=== PATIENT | female | born 1955 | race African-American/Black ===

== ENCOUNTER 2016-05-15 15:12 | Emergency (ER) | payer OTHER ==
[~2016-05-15] VITALS: Ht 160 cm; Wt 83.9 kg
[~2016-05-15 15:12] MED LIST: AMITRIPTYLINE H25 M3 PO; AMLODIPINE BESY10 MG PO; AMOXICILLIN 50500 M1 PO; APAP/CODEINE ELI5 M1 OR; ATORVASTATIN CA40 MG PO; BUPROPION XL150 MG PO; DIOVAN; FLEXERIL PO; IBUPROFEN 600600 M1 PO; IBUPROFEN 800800 M1 PO; IBUPROFEN 800800 MG PO; METAXALONE800 MG PO; METFORMIN HCL500 MG PO; NOHOMEMEDICATIONS; NORCO 5-325 TA1 EACH PO; NORFLEX100 MG PO; PAXIL10 MG PO; PHENERGAN 25 MG25 M1 PO; PHENTERMINE H37.5 MG PO; PROVENTIL HFA6.7 G1 INH; SIMVASTATIN5 MG; TOPROL XL25 MG PO; TOPROL XL50 MG PO; VENTOLIN17 GM INH; VICODIN 5-5001 EACH PO; ZOCOR; ZOCOR 20 MG TAB20 M1 PO; ZOFRAN ODT4 MG PO; ZPAK PO; [UNRECOGNIZED DRUG - OTHER] PO
[2016-05-15] MEDS ORDERED: VITAMIN D 5050000 I1 PO (15:33)
[2016-05-15 15:54] LABS: URINE BILIRUBIN NEGATIVE (Negative); URINE BLOOD NEGATIVE (Negative); URINE COLOR YELLOW; URINE GLUCOSE-RANDOM* 2+ (Negative); URINE KETONES NEGATIVE (Negative); URINE LEUKOCYTES-REFLEX NEGATIVE (Negative); URINE PROTEIN (DIPSTICK) NEGATIVE (Negative)
[2016-05-15 15:55] LABS: ABSOLUTE NEUTROPHILS 4.2 thou/uL (1.4-8.2); BASOPHILS 0.6 % (0.0-2.0); HEMATOCRIT 34.4 % (37.0-47.0); HEMOGLOBIN 11.4 gm/dL (12.0-15.0); LYMPHOCYTES 29.4 % (24.0-44.0); MCH 27.2 pg (26.0-34.0); MCV 82.4 fL (80.0-100.0); MONOCYTES 7.4 % (1.0-8.0); PLATELET COUNT 250 thou/uL (150-400); POLYS 61.6 % (36.0-66.0); RBC 4.17 mil/uL (4.20-5.00); WBC 6.8 thou/uL (4.0-11.0)
[2016-05-15 15:57] LABS: MANUAL DIFF NO
[2016-05-15 16:03] LABS: CALCIUM 8.9 mg/dL (8.5-10.1); POTASSIUM 3.4 mmol/L (3.5-5.1)
[2016-05-15 16:07] LABS: ALBUMIN 3.6 g/dL (3.4-5.0); TOTAL BILIRUBIN 0.1 mg/dL (<0.1-1.0); TOTAL PROTEIN 7.7 g/dL (6.4-8.2)
[2016-05-15] MEDS ORDERED: NAPROSYN500 MG PO (17:03)
[2016-05-15] MEDS ORDERED: ONDANSETRON HCL4 M2 PO (17:03)
== END 2016-05-15 17:53 | disposition home or self-care (01) ==
LOC: ER 15:12
PROVIDERS: Emergency Medicine
DX: R10.32 Left lower quadrant pain (principal); E11.9 Type 2 diabetes mellitus without complications; I10 Essential (primary) hypertension; E78.5 Hyperlipidemia, unspecified; Z90.710 Acquired absence of both cervix and uterus; Z88.5 Allergy status to narcotic agent

== ENCOUNTER 2018-01-05 19:56 | Emergency (ER) | payer BC, OTHER ==
[~2018-01-05] VITALS: Ht 177.8 cm; Wt 79.8 kg
--- NOTE | ~2018-01-05 | EKG ---
[address] [place] [address] ELECTROCARDIOGRAM REPORT Name: JACOBTWAN Room #: [facility] Herbie#: [id number] Admission: 01/05/18 Attend Phys: Discharge: 01/05/18 Date of : 57 Report #: [id number] THIS REPORT FOR: //name// 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 : 1955 Requested By: Mehran Schnieder Order Number: [id number] MD: Epi Castorena Measurements Intervals [place] Rate: 85 P: 31 W[place]: 165 QRS: -4 QRSD: 156 T: -6 QT: 423 QTc: 503 Interpretive Statements Sinus rhythm Right bundle branch block Compared to ECG 06/18/2014 23:18:41 Right bundle-branch block now present Electronically Signed On 01-06-2018 9:38:50 GEOSPATIAL INTELLIGENCE ANALYST by Epi Castorena [email or web address] <ELECTRONICALLY SIGNED> By: Epi Castorena MD, [facility] 01/06/18 0938 [id number] 58 Epi Castorena MD, FACC /EPI
[~2018-01-05 19:56] MED LIST changes: +NAPROSYN500 MG PO; +ONDANSETRON HCL4 M2 PO; +VITAMIN D 5050000 I1 PO
[2018-01-05 20:54] LABS: ABSOLUTE NEUTROPHILS 4.8 thou/uL (1.4-8.2); BASOPHILS 0.8 % (0.0-2.0); HEMATOCRIT 38.1 % (37.0-47.0); LYMPHOCYTES 33.2 % (24.0-44.0); MCH 28.3 pg (26.0-34.0); MCHC 34.1 g/dL (28.0-37.0); MONOCYTES 4.1 % (1.0-8.0); POLYS 60.9 % (36.0-66.0); RBC 4.59 mil/uL (4.20-5.00); WBC 10.3 thou/uL (4.0-11.0)
[2018-01-05 21:00] LABS: ANION GAP 11 mmol/L (7-16); BUN 14 mg/dL (7-18); CALCIUM 9.3 mg/dL (8.5-10.1); CHLORIDE 99 mmol/L (98-107); CO2 27 mmol/L (21-32); CREATININE 1.1 mg/dL (0.6-1.0); GLUCOSE 378 mg/dL (74-106); POTASSIUM 3.8 mmol/L (3.5-5.1); SODIUM 137 mmol/L (136-145)
[2018-01-05 21:08] LABS: TROPONIN-I <0.06 ng/mL (<0.06)
[2018-01-05] MEDS ORDERED: METFORMIN HCL500 MG PO (21:43)
[2018-01-05] MEDS ORDERED: CRESTOR10 MG PO (21:44)
[2018-01-05] MEDS ORDERED: CELEXA10 MG PO (21:44)
[2018-01-05] MEDS ORDERED: COZAAR 25 MG TA25 M1 PO (21:45)
[2018-01-05] MEDS ORDERED: BYDUREON P2 MG/0.65 SUBQ (21:47)
[2018-01-05 21:57] LABS: PLATELET COUNT 216 thou/uL (150-400)
[2018-01-05 22:58] VITALS: BP 161/93
== END 2018-01-05 22:58 | disposition home or self-care (01) ==
LOC: ER 19:56
PROVIDERS: Emergency Medicine
DX: I10 Essential (primary) hypertension (principal); E11.9 Type 2 diabetes mellitus without complications; E78.5 Hyperlipidemia, unspecified; Z88.5 Allergy status to narcotic agent; Z90.10 Acquired absence of unspecified breast and nipple; Z90.710 Acquired absence of both cervix and uterus; Z98.890 Other specified postprocedural states

== ENCOUNTER 2018-11-10 17:07 | Emergency (ER) | payer BC, OTHER ==
[~2018-11-10] VITALS: Ht 160 cm; Wt 77.1 kg
[~2018-11-10 17:07] MED LIST changes: +BYDUREON P2 MG/0.65 SUBQ; +CELEXA10 MG PO; +COZAAR 25 MG TA25 M1 PO; +CRESTOR10 MG PO
[2018-11-10 17:36] LABS: ABSOLUTE NEUTROPHILS 3.3 thou/uL (1.4-8.2); BASOPHILS 0.7 % (0.0-2.0); EOSINOPHILS 1.4 % (0.0-3.0); HEMATOCRIT 37.1 % (37.0-47.0); HEMOGLOBIN 11.9 gm/dL (12.0-15.0); MCH 26.8 pg (26.0-34.0); MCHC 32.1 g/dL (28.0-37.0); MCV 83.5 fL (80.0-100.0); MONOCYTES 4.5 % (1.0-8.0); PLATELET COUNT 293 thou/uL (150-400); POLYS 55.4 % (36.0-66.0); RBC 4.44 mil/uL (4.20-5.00); RDW 13.9 % (10.5-14.5)
[2018-11-10 17:39] LABS: ANION GAP 14 mmol/L (7-16); BUN 13 mg/dL (7-18); CALCIUM 9.5 mg/dL (8.5-10.1); CHLORIDE 103 mmol/L (98-107); CO2 25 mmol/L (21-32); CREATININE 1.1 mg/dL (0.6-1.0); GLUCOSE 243 mg/dL (74-106); POTASSIUM 3.5 mmol/L (3.5-5.1); SODIUM 142 mmol/L (136-145)
[2018-11-10 17:49] LABS: SGOT 13 U/L (15-37); SGPT 20 U/L (30-65); TOTAL BILIRUBIN 0.2 mg/dL (<0.1-1.0); TOTAL PROTEIN 8.6 g/dL (6.4-8.2); TROPONIN-I <0.06 ng/mL (<0.06)
[2018-11-10] MEDS ORDERED: CYCLOBENZAPRINE5 MG PO (19:59)
[2018-11-10] MEDS ORDERED: NORCO 5-325 TA1 EAC1 PO (19:59)
[2018-11-10 20:35] VITALS: BP 187/93
--- NOTE | 2018-11-11 08:01 | EKG ---
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: : 1955 Requested By: Annel Mcelroy Order Number: [id number] MD: Vic Yadav Measurements Intervals [place] Rate: 83 P: 28 [place]: 172 QRS: -24 QRSD: 159 T: -4 QT: 451 QTc: 530 Interpretive Statements Sinus rhythm Right bundle branch block LVH by voltage Compared to ECG 01/05/2018 20:59:40 Left ventricular hypertrophy now present Electronically Signed On 11-11-2018 8:01:21 CDT by Vic Yadav [email or web address] ��������������������������������������������� <ELECTRONICALLY SIGNED> ���������������������������������������� By: Vic Yadav MD ��������������������������������������������� 11/11/18 0801 [id number] 175 Vic Yadav MD /SURESH
== END 2018-11-10 20:40 | disposition home or self-care (01) ==
LOC: ER 17:07
PROVIDERS: Physician Assistant
DX: M54.2 Cervicalgia (principal); M54.6 Pain in thoracic spine; M25.532 Pain in left wrist; R07.89 Other chest pain; R51 Headache; E11.9 Type 2 diabetes mellitus without complications; I10 Essential (primary) hypertension; E78.5 Hyperlipidemia, unspecified; Z90.710 Acquired absence of both cervix and uterus; Z98.890 Other specified postprocedural states; Z88.6 Allergy status to analgesic agent; V89.2XXA Person injured in unspecified motor-vehicle accident, traffic, initial encounter; Y93.89 Activity, other specified; Y92.488 Other paved roadways as the place of occurrence of the external cause; Y99.8 Other external cause status

== ENCOUNTER 2021-01-15 12:30 | Emergency (ER) | payer BC, OTHER ==
[~2021-01-15] VITALS: Ht 160 cm; Wt 73.9 kg
[~2021-01-15 12:30] MED LIST changes: +CYCLOBENZAPRINE5 MG PO; +NORCO 5-325 TA1 EAC1 PO
[2021-01-15 12:34] VITALS: BP 166/104
[2021-01-15] MEDS ORDERED: MEDROLDOSEPACK PO (13:52)
[2021-01-15] MEDS ORDERED: TESSALON PERLE100 MG PO (13:52)
== END 2021-01-15 14:41 | disposition home or self-care (01) ==
LOC: ER 12:30
PROVIDERS: Physician Assistant
DX: U07.1 COVID-19 (principal); E11.9 Type 2 diabetes mellitus without complications; I10 Essential (primary) hypertension; E78.5 Hyperlipidemia, unspecified; Z98.890 Other specified postprocedural states; Z90.710 Acquired absence of both cervix and uterus; Z79.84 Long term (current) use of oral hypoglycemic drugs; Z79.891 Long term (current) use of opiate analgesic; Z79.899 Other long term (current) drug therapy; Z88.5 Allergy status to narcotic agent